=== PATIENT | male | born 1995 | race Two or more races ===

== ENCOUNTER 2022-01-15 05:05 | Emergency (ER) | payer BC, OTHER ==
[~2022-01-15] VITALS: Ht 188 cm; Wt 72.6 kg
[2022-01-15 05:10] VITALS: BP 145/89
--- NOTE | 2022-01-15 05:15 | NUR ---
PATIENT REFUSED TO SEE A DOCTOR AND DECIDED TO LEAVE RIGHT AFTER TRIAGE. RISK VS. BENEFITS EXXPLAINED TO THE PATIENT AND PATIENT WAS INSTRUCTED TO COME BACK TO THE ER FOR ANY WORSENING SYMPTOMS.
== END 2022-01-15 05:39 | disposition left against medical advice (07) ==
LOC: ER 05:06
DX: Z53.21 Procedure and treatment not carried out due to patient leaving prior to being seen by health care provider (principal); M79.602 Pain in left arm; R07.89 Other chest pain; F41.9 Anxiety disorder, unspecified